=== PATIENT | female | born 1950 | race African-American/Black ===

== ENCOUNTER → 2017-09-24 | Outpatient (CLI) | payer MEDICARE, BC | END | disposition home or self-care (01) | LOC: KCIC MAMMO 12:44 | DX: R92.8 Other abnormal and inconclusive findings on diagnostic imaging of breast (principal) | CPT/HCPCS: 77066; G0279 ==

== ENCOUNTER → 2017-12-26 | Outpatient (CLI) | payer MEDICARE, BC ==
[2016-02-19 11:00] VITALS: BP 129/56
[~2017-12-26] MED LIST: ASPI325T8 PO; CIPR500T PO; FERR325T14 PO; LOSA1TAB22 PO; METO-247 PO; OXYC-323 PO
--- NOTE | 2017-12-26 15:47 | KCIC ---
Limited abdominal ultrasound History: Right upper quadrant pain Findings: Aorta: Poorly visualized. Mid aorta appears ectatic but no evidence of aneurysm. Inferior vena cava: Poorly visualized Pancreas: Unremarkable Liver: Coarse echogenicity suggesting fatty infiltration. No enlargement. Gallbladder: Poorly visualized. No definite gallstones or wall thickening. Bile ducts: No evidence of dilatation Right kidney: 10.5 cm longitudinal. Mild dilatation of the renal pelvis.. Impression: 1. Poor visualization of gallbladder and midline structures. 2. No definite gallstone or gallbladder wall thickening. 3. Mild right renal pelvis dilatation or hydronephrosis. 4. Coarse hepatic echogenicity suggesting fatty infiltration. Electronically signed by: Aristides Nguyen MD (12/26/2017 3:43 PM) [id number]
== END | disposition home or self-care (01) ==
LOC: KCIC US 08:42
PROVIDERS: ATTEND Family Medicine
DX: R10.11 Right upper quadrant pain (principal); M17.0 Bilateral primary osteoarthritis of knee; I10 Essential (primary) hypertension; E78.00 Pure hypercholesterolemia, unspecified
CPT/HCPCS: 76705

== ENCOUNTER → 2018-03-04 | Outpatient (CLI) | payer MEDICARE, BC ==
[2016-02-19 11:00] VITALS: BP 129/56
[~2018-03-04] MED LIST changes: +ATOR10TA PO; +IOHEXOL 240 MG/ML 50ML VIAL. PO ONE; +IOHEXOL 300 MG/ML 100ML VIAL. IV ONE; +LOSA1TAB12 PO
--- NOTE | 2018-03-04 16:59 | KCIC ---
CT of the abdomen and pelvis with and without IV contrast and without comparison for right-sided abdominal pain, right flank pain. TECHNIQUE: Contiguous helical 3 mm axial images are obtained from the apex of the diaphragm to the pelvic floor prior to administration of IV contrast. This is followed by similar images after ministration of IV contrast. Oral contrast was also administered. Sagittal and coronal reformations are evaluated. FINDINGS: Within the lung bases, there are several subcentimeter pleural-based nodular opacities, which are seen laterally on the left on axial image #8, 2 additional seen on axial image 11, and 2 additional seen posteriorly on the right on axial images were 12. Further evaluation with CT scan of the chest is recommended as these are concerning for metastatic deposits. Heart size is within normal limits. No renal or ureteral calculi are identified. The liver, pancreas, bilateral adrenal glands, and bilateral kidneys are grossly unremarkable. The gallbladder is partially contracted but unremarkable as well. Spleen is notable for multiple coarse calcifications, as well as several small hypodense lesions the largest of which is seen anterior medially on axial image #40 of the contrast-enhanced series. This does demonstrate mild contrast enhancement. Differential diagnostic considerations include benign or malignant lesion such as lymphoma, metastatic deposit, hemangioma. An accessory splenule is also noted. There is inhomogeneous opacification of large and small bowel, with no gross bowel abnormalities identified. The appendix is normal. There is an enlarged fibroid uterus with numerous calcified fibroids. The ovaries are not definitely identified. This uterus does displaced urinary bladder to the right. At the base of the urinary bladder, there is a sessile appearing 4.2 x 0.9 cm, which is concerning for bladder neoplasm. Several phleboliths are seen within the pelvis. There is a single 1 cm pelvic sidewall lymph node on the left on axial image #114 of the contrast enhanced series. No other pelvic adenopathy is seen. A couple of small inguinal lymph nodes are seen bilaterally, without any definite suspicious features. Several small retroperitoneal lymph nodes are also free of any discretely suspicious features. No mesenteric adenopathy is seen. There is a fat-containing periumbilical hernia. No free or loculated fluid collections are seen. No osteoblastic or osteolytic bone lesions are evident. Multiple degenerative changes of the lumbar spine are seen however. IMPRESSION: 1. Multiple 8 to 10 mm pleural-based lung nodules. Although these could represent benign etiology such as microemboli or atypical infection, they are also concerning for metastatic disease, and further evaluation with full CT scan of the chest is recommended. 2. 4.2 cm sessile soft tissue mass at the base of the urinary bladder concerning for primary bladder neoplasm. Further evaluation with direct visualization is recommended. 3. Several hypodensities within the spleen, some of which are associated with coarse calcifications. While these may be benign, lymphoma or metastatic disease should also be considered. 4. No suspicious inguinal, pelvic, mesenteric, or retroperitoneal adenopathy. A single left pelvic side wall and several small retroperitoneal lymph nodes all lacking any definitive suspicious features. 5. Enlarged fibroid uterus displacing the urinary bladder to the right. 6. Other chronic changes as described. Electronically signed by: Yoshi Hamm MD (03/04/2018 4:56 PM) [id number]
== END | disposition home or self-care (01) ==
LOC: KCIC CT 12:42
PROVIDERS: ATTEND Family Medicine
DX: D25.9 Leiomyoma of uterus, unspecified (principal); K42.9 Umbilical hernia without obstruction or gangrene; I87.8 Other specified disorders of veins; R91.8 Other nonspecific abnormal finding of lung field; R59.0 Localized enlarged lymph nodes; I10 Essential (primary) hypertension
CPT/HCPCS: 74178; 82565; Q9966; Q9967

== ENCOUNTER → 2018-05-14 | Outpatient (CLI) | payer MEDICARE, BC ==
[2016-02-19 11:00] VITALS: BP 129/56
[~2018-05-14] MED LIST changes: -IOHEXOL 240 MG/ML 50ML VIAL. PO ONE; -IOHEXOL 300 MG/ML 100ML VIAL. IV ONE; -OXYC-323 PO; +OXYC1TAB15 PO
--- NOTE | 2018-05-14 14:12 | RAD ---
CLINICAL HISTORY: ABNORMAL CT OF THE ABDOMEN INDICATION: Initial evaluation. COMPARISON: CT 03/04/2018 TECHNIQUE: Location of scan: [facility] Radiopharmaceutical Dose: 13.4 mCi F-18 FDG intravenous Blood glucose at time of study: 103 FDG uptake time = 60 minutes. Images were obtained from the mid head to the mid thighs. A low dose, noncontrast CT study was performed for the purpose of attenuation correction and anatomic localization. FINDINGS: Head and Neck: Physiologic activity within the head and neck. Right maxillary sinus thickening, likely sinusitis. Chest: No focus of abnormal metabolic activity is seen within the thorax. Abdomen and Pelvis: The previously seen hypodense lesions are fairly visualized on this noncontrast low dose exam. No definite associated increased metabolic activity. Physiologic GI and activity. Evaluation for bladder mass is limited by PET CT given high concentration of FDG activity within the bladder from urinary excretion. The uterus is increased in size with physiologic activity. Numerous calcified fibroids are seen. Musculoskeletal: Focus of increased uptake within the left supraspinatus muscle belly, nonspecific but possibly strain. Reference SUV Values: Mediastinal SUV Max: 3.8 Liver SUV Max: 4.67 IMPRESSION: 1. Small nonspecific focus of activity within the left supraspinatus muscle belly, possibly from prior injury or strain pattern. 2. No abnormal metabolic activity within the spleen. 3. Evaluation for bladder mass is markedly limited given obscuration of any abnormal metabolic activity by the physiologic collection of FDG in the urinary bladder. Radiation Dosimetry: The radiopharmaceutical used for this exam delivers approximately 0.7 mSv/mCi (70 mRem/mCi) Source: ICRP Publication 106
== END | disposition home or self-care (01) ==
LOC: PETSC 09:55
PROVIDERS: ATTEND Family Medicine
DX: D25.9 Leiomyoma of uterus, unspecified (principal)
CPT/HCPCS: 78815; A9552